=== PATIENT | male | born 1980 | race American Indian/Alaskan Native ===

== ENCOUNTER 2017-06-28 01:51 | Emergency (ER) | payer BC ==
[2017-06-28] MEDS ORDERED: MOTRIN PO ONE (06:13)
--- NOTE | 2017-06-28 06:16 | Emergency Department Report ---
ED Laceration [facility] - HPI Chief Complaint: Wound/Laceration Stated Complaint: LAC TO HAND Time Seen by Provider: 06/28/17 06:12 Occurred When: Today Location: Upper Extremity (right middle finger) Severity: mild Laceration Symptoms: Yes Pain, No Foreign Body Sensation, No Numbness, No Weakness Other History: 36-year-old -[place] male comes in for laceration to the right middle finger. Patient reports he cut with a knife while washing dishes. Patient reports that it happened last night. Patient reports no past medical history currently takes no medications and has no known drug allergies. ED Review of Systems ROS: Stated complaint: LAC TO HAND Other details as noted in HPI Constitutional: denies: chills, fever Eyes: denies: eye pain, eye discharge, vision change ENT: denies: ear pain, throat pain Respiratory: denies: cough, shortness of breath, wheezing Cardiovascular: denies: chest pain, palpitations Endocrine: no symptoms reported Gastrointestinal: denies: abdominal pain, nausea, diarrhea Genitourinary: denies: urgency, dysuria Musculoskeletal: denies: back pain, joint swelling, arthralgia Skin: other (cut to right middle finger). denies: rash, lesions Neurological: denies: headache, weakness, paresthesias Psychiatric: denies: anxiety, depression Hematological/Lymphatic: denies: easy bleeding, easy bruising ED Past Medical Hx - Past Medical History Previous Medical History?: No - Surgical History Past Surgical History?: No - Social History Smoking Status: Never Smoker Substance Use Type: None - Medications Home Medications: Home Medications Medication Instructions Recorded Confirmed Last Taken Type No Known Home Medications [No 06/28/17 06/28/17 Unknown History Reported Home Medications] Laceration Physical Exam - Exam General: Vital signs noted. No distress. Alert and acting appropriately. Wound Length (cm): 1 (right middle finger) Laceration Location: Upper Extremity (right middle finger) Laceration Exam: Yes Normal Distal CMS, No Foreign Body, No Exposed Tendon, Vessel, or Nerve, No Tendon Injury - Laceration /Wound Repair Right Finger Wound Location: upper extremity (right middle finger) Wound Length (cm): 1 Wound's Depth, Shape: superficial Wound Explored: clean Irrigated w/ Saline (ccs): 500 Betadine Prep?: Yes Wound Repaired With: Dermabond Sterile Dressing Applied?: Yes Progress: Patient tolerated procedure well ED Medical Decision Making - Medical Decision Making Patient has been evaluated by this provider fast track. Bleeding is controlled. Discussed the patient we will use Dermabond surgical glue to repair his finger laceration. Discussed patient keep bandage on did not pry opening up keep it clean and dry. Follow-up with her primary care provider if symptoms persist or gets worse. Critical care attestation.: If time is entered above; I have spent that time in minutes in the direct care of this critically ill patient, excluding procedure time. ED Disposition Clinical Impression: Laceration of right middle finger Qualifiers: Encounter type: initial encounter Damage to nail status: without damage Foreign body presence: without foreign body Qualified Code(s): S61.212A - Laceration without foreign body of right middle finger without damage to nail, initial encounter Disposition: - TO HOME OR SELFCARE Is pt being admited?: No Does the pt Need Aspirin: No Condition: Stable Instructions: Skin Adhesive Care (ED) Additional Instructions: You can take [id number] Tylenol or Motrin for pain. Please keep the wound clean and dry. Please keep bandage on for the next 24 hours. If symptoms persist or gets worse to follow back up in emergency room. Referrals: PRIMARY CARE, [Primary Care Provider] - 3-5 Days Forms: Work/School Release Form(ED)
== END 2017-06-28 06:20 | disposition home or self-care (01) ==
LOC: ED 01:51
DX: S61.212A Laceration without foreign body of right middle finger without damage to nail, initial encounter (principal); W26.0XXA Contact with knife, initial encounter; Y93.G1 Activity, food preparation and clean up; Y99.8 Other external cause status; Y92.89 Other specified places as the place of occurrence of the external cause

== ENCOUNTER 2018-04-16 21:28 | Emergency (ER) | payer BC ==
[2018-04-16] MEDS ORDERED: ASPIRIN PO ONE (21:43)
[2018-04-16 22:03] LABS: Basophils % (Auto) 0.9 % (0.0-1.8); Eosinophils # (Auto) 0.1 K/mm3 (0.0-0.4); Eosinophils % (Auto) 2.5 % (0.0-4.3); Hematocrit 45.8 % (35.5-45.6); Lymphocytes # (Auto) 1.7 K/mm3 (1.2-5.4); Lymphocytes % (Auto) 31.6 % (13.4-35.0); Mean Corpuscular HGB Conc 35 % (32-34); Mean Corpuscular Volume 86 fl (84-94); Monocytes # (Auto) 0.6 K/mm3 (0.0-0.8); Monocytes % (Auto) 12.1 % (0.0-7.3); Platelet Count 175 K/mm3 (140-440); Red Blood Count 5.31 M/mm3 (3.65-5.03)
[2018-04-16 22:24] LABS: BUN/Creatinine Ratio 11; Blood Urea Nitrogen 10 mg/dL (9-20); Hemolysis Index 18
--- NOTE | 2018-04-17 | Emergency Department Report ---
ED Chest Pain HPI - General Chief Complaint: Chest Pain Stated Complaint: CHEST PAIN Time Seen by Provider: 04/16/18 23:54 Source: patient Mode of arrival: Ambulatory Limitations: No Limitations - History of Present Illness MD Complaint: chest pain -: Gradual (On and off for 1 month.) Onset: during rest Pain Radiation: none Severity: moderate Severity scale (0 -10): 5 Quality: sharp Consistency: constant Improves With: rest Worsens With: movement, other (Lifting weight in the gym.) re: denies: nausea, vomting, dyspnea Treatments Prior to Arrival: none Aspirin use within the Past 7 Days: (0) No - Related Data On Oral Contraceptives: No Previous Rx's Medication Instructions Recorded Last Taken Type Ibuprofen [Motrin] 800 mg PO Q8HR PRN #20 tablet 04/17/18 Unknown Rx Allergies Allergy/AdvReac Type Severity Reaction Status Date / Time No Known Allergies Allergy Verified 04/16/18 23:55 Heart Score - HEART Score History: Slightly suspicious EKG: Normal Age: < 45 Risk factors: No known risk factors Troponin: < normal limit HEART Score: 0 - Critical Actions Critical Actions: 0-3 pts:0.9-1.7%risk of adverse cardiac event.Candidate for discharge ED Review of Systems ROS: Stated complaint: CHEST PAIN Other details as noted in HPI Comment: All other systems reviewed and negative Constitutional: denies: chills, fever Eyes: denies: eye pain, eye discharge, vision change ENT: denies: ear pain, throat pain Respiratory: denies: cough, shortness of breath, wheezing Cardiovascular: chest pain. denies: palpitations Endocrine: no symptoms reported Gastrointestinal: denies: abdominal pain, nausea, diarrhea Genitourinary: denies: urgency, dysuria Musculoskeletal: denies: back pain, joint swelling, arthralgia Skin: denies: rash, lesions Neurological: denies: headache, weakness, paresthesias Psychiatric: denies: anxiety, depression Hematological/Lymphatic: denies: easy bleeding, easy bruising ED Past Medical Hx - Past Medical History Previous Medical History?: No - Surgical History Past Surgical History?: No - Social History Smoking Status: Never Smoker Substance Use Type: None, Alcohol - Medications Home Medications: Home Medications Medication Instructions Recorded Confirmed Last Taken Type Ibuprofen [Motrin] 800 mg PO Q8HR PRN #20 tablet 04/17/18 Unknown Rx ED Physical Exam - General Limitations: No Limitations General appearance: alert, in no apparent distress - Head Head exam: Present: atraumatic, normocephalic, normal inspection - Eye Eye exam: Present: normal appearance, PERRL, EOMI Pupils: Present: normal accommodation - ENT ENT exam: Present: normal exam, normal orophraynx, mucous membranes moist - Neck Neck exam: Present: normal inspection, full ROM. Absent: tenderness - Respiratory Respiratory exam: Present: normal lung sounds bilaterally. Absent: respiratory distress, wheezes, rales - Cardiovascular Cardiovascular Exam: Present: regular rate, normal rhythm, other (Anterior chest wall tenderness to palpation near the sternum.). Absent: systolic murmur, diastolic murmur, rubs, gallop - GI/Abdominal GI/Abdominal exam: Present: soft, normal bowel sounds. Absent: distended, tenderness, guarding, rebound - Rectal Rectal exam: Present: deferred - Extremities Exam Extremities exam: Present: normal inspection, full ROM, normal capillary refill. Absent: tenderness - Back Exam Back exam: Present: normal inspection, full ROM. Absent: tenderness, CVA tenderness (R), CVA tenderness (L) - Neurological Exam Neurological exam: Present: alert, oriented X3, CN II-XII intact - Psychiatric Psychiatric exam: Present: normal affect, normal mood - Skin Skin exam: Present: warm, dry, intact, normal color. Absent: rash ED Course Vital Signs 04/16/18 04/16/18 04/17/18 21:39 21:41 00:09 Temperature 97.8 F 97.8 F Pulse Rate 78 74 Respiratory 18 16 18 Rate Blood Pressure 122/75 122/75 Blood Pressure [Left] O2 Sat by Pulse 98 98 98 Oximetry 04/17/18 04/17/18 04/17/18 00:20 00:23 00:30 Temperature 97.9 F Pulse Rate 60 Respiratory 12 Rate Blood Pressure Blood Pressure 123/61 [Left] O2 Sat by Pulse 97 98 97 Oximetry 04/17/18 04/17/18 04/17/18 00:45 01:00 01:15 Temperature Pulse Rate 62 64 71 Respiratory 22 25 H 23 Rate Blood Pressure 116/67 120/60 120/60 Blood Pressure [Left] O2 Sat by Pulse 95 96 93 Oximetry 04/17/18 04/17/18 04/17/18 01:31 01:45 02:00 Temperature Pulse Rate 64 62 62 Respiratory 21 17 20 Rate Blood Pressure 116/65 125/72 115/67 Blood Pressure [Left] O2 Sat by Pulse 96 95 94 Oximetry 04/17/18 04/17/18 04/17/18 02:15 02:30 02:45 Temperature Pulse Rate 62 62 66 Respiratory 21 21 19 Rate Blood Pressure 123/64 114/66 114/66 Blood Pressure [Left] O2 Sat by Pulse 95 94 94 Oximetry 04/17/18 04/17/18 04/17/18 03:00 03:15 03:31 Temperature Pulse Rate 59 L 60 61 Respiratory 20 21 17 Rate Blood Pressure 114/67 122/69 112/70 Blood Pressure [Left] O2 Sat by Pulse 95 95 97 Oximetry 04/17/18 04/17/18 03:45 04:01 Temperature Pulse Rate 61 61 Respiratory 16 20 Rate Blood Pressure 112/70 114/76 Blood Pressure [Left] O2 Sat by Pulse 96 97 Oximetry - Reevaluation(s) Reevaluation #1: 04/17/18 05:41 Patient is feeling much better and ready to go home. SYLVIA score - Sylvia Score Age > 65: (0) No Aspirin use within the Past 7 Days: (0) No 3 or more CAD Risk Factors: (0) No 2 or more Angina events in past 24 hrs: (0) No Known CAD with more than 50% Stenosis: (0) No Elevated Cardiac Markers: (0) No ST Deviation Greater than 0.5mm: (0) No SYLVIA Score: 0 ED Medical Decision Making - Lab Data Result diagrams: 04/16/18 21:51 04/16/18 21:51 Lab Results 04/16/18 04/16/18 Range/Units 21:51 21:51 WBC 5.2 (4.5-11.0) K/mm3 RBC 5.31 H (3.65-5.03) M/mm3 Hgb 16.0 H (11.8-15.2) gm/dl Hct 45.8 H (35.5-45.6) % MCV 86 (84-94) fl MCH 30 (28-32) pg MCHC 35 H (32-34) % RDW 15.0 (13.2-15.2) % Plt Count 175 (140-440) K/mm3 Lymph % (Auto) 31.6 (13.4-35.0) % Kern % (Auto) 12.1 H (0.0-7.3) % Eos % (Auto) 2.5 (0.0-4.3) % Baso % (Auto) 0.9 (0.0-1.8) % Lymph # 1.7 (1.2-5.4) K/mm3 Kern # 0.6 (0.0-0.8) K/mm3 Eos # 0.1 (0.0-0.4) K/mm3 Baso # 0.0 (0.0-0.1) K/mm3 Seg Neutrophils % 52.9 (40.0-70.0) % Seg Neutrophils # 2.8 (1.8-7.7) K/mm3 Sodium 140 (137-145) mmol/L Potassium 3.8 (3.6-5.0) mmol/L Chloride 102.8 (98-107) mmol/L Carbon Dioxide 25 (22-30) mmol/L BUN 10 (9-20) mg/dL Creatinine 0.9 (0.8-1.5) mg/dL Estimated GFR > 60 ml/min BUN/Creatinine Ratio 11 % Glucose 92 (75-100) mg/dL Calcium 9.0 (8.4-10.2) mg/dL Troponin T < 0.010 (0.00-0.029) ng/mL - EKG Data -: EKG Interpreted by Ga EKG shows normal: sinus rhythm Rate: normal (72) - EKG Data When compared to previous EKG there are: previous EKG unavailable Interpretation: nonspecific ST-T wave uziel 04/17/18 00:51 Early repolarization, No STEMI. - Radiology Data Radiology results: report reviewed, image reviewed CXR is negative. - Medical Decision Making Chest Wall Pain. Critical care attestation.: If time is entered above; I have spent that time in minutes in the direct care of this critically ill patient, excluding procedure time. ED Disposition Clinical Impression: Acute costochondritis Disposition: DC-01 TO HOME OR SELFCARE Is pt being admited?: No Does the pt Need Aspirin: Yes Condition: Stable Instructions: Costochondritis (ED) Additional Instructions: Please follow up with your regular doctor on Wednesday. Return to the ED if your condition worsens. Prescriptions: Ibuprofen [Motrin] 800 mg PO Q8HR PRN #20 tablet PRN Reason: Pain , Severe (7-10) Referrals: PRIMARY CARE,MD [Primary Care Provider] - 3-5 Days Time of Disposition: 05:41
[2018-04-17 00:59] LABS: Alanine Aminotransferase 20 units/L (7-56); Albumin 4.3 g/dL (3.9-5)
[2018-04-17 01:11] LABS: Bilirubin,Direct < 0.2 mg/dL (0-0.2)
[2018-04-17] MEDS ORDERED: BABY ASPIRIN ONE (03:22)
[2018-04-17 06:08] VITALS: BP 106/55
--- NOTE | 2018-04-19 08:22 | XRay Report ---
FINAL REPORT PROCEDURE: XRAY CHEST 2 VIEWS TECHNIQUE: PA and lateral chest radiographs were obtained. CPT 20127 HISTORY: CHEST PAIN COMPARISON: No prior studies are available for comparison. FINDINGS: Heart: Normal. Mediastinum/Vessels: Normal. Lungs/Pleural space: Normal. Bony thorax: No acute osseous abnormality. Other: IMPRESSION: Normal examination.
== END 2018-04-17 06:17 | disposition home or self-care (01) ==
LOC: ED 21:28
DX: M94.0 Chondrocostal junction syndrome [Tietze] (principal)
CPT/HCPCS: 36415; 71046; 80048; 80076; 82550; 83880; 84484; 85025; 85379; 93005; 93010